=== PATIENT | male | born 1950 | race Caucasian/White ===

== ENCOUNTER 2020-12-03 11:31 | Inpatient (IN) | payer OTHER, MEDICARE ==
[2020-12-03] MEDS: Sodium Chloride 0.9% 1,000 ML IV SCH ×2 (12:20→21:01)
[2020-12-03 12:48] LABS: Troponin I 0.692 ng/mL (< 0.028)
[2020-12-03 15:20] LABS: Troponin I 0.759 ng/mL (< 0.028)
[2020-12-03] MEDS ORDERED: Senokot S 8.6-50 MG TAB PO PRN (15:20)
[2020-12-03] MEDS ORDERED: Ondansetron ODT 4 MG TAB PO PRN (15:20)
[2020-12-03] MEDS ORDERED: Nitroglycerin 0.4 MG TAB (25 Tab Bottle) SL PRN (15:20)
[2020-12-03] MEDS: Carvedilol 3.125 MG TAB PO SCH (18:56)
[2020-12-03] MEDS: Famotidine 20 MG TAB PO SCH (20:23)
[2020-12-03] MEDS: Enoxaparin Sodium 60 MG/0.6 ML SYRINGE SC SCH (20:23)
[2020-12-03] MEDS: Atorvastatin Calcium 40 MG TAB PO SCH (20:23)
[2020-12-03] MEDS ORDERED: Zolpidem Tartrate 5 MG TAB PO SCH (21:00)
[2020-12-03 22:03] LABS: Critical Call Chem Troponin I RESULT DECREASING
[2020-12-03 22:09] LABS: SARS-CoV-2 PCR by NAA Not Detected (NotDetected)
[2020-12-03] MEDS ORDERED: Sodium Chloride 0.9% 1,000 ML IV SCH (22:38)
[2020-12-03 23:52] LABS: Bilirubin Neg (Negative); Blood, Urine 10 (Negative); Clarity Slightly Cloudy (Clear); Glucose, Urine (Dipstick) 100 mg/dL (Negative); Ketone, Urine 15 mg/dL (Negative); Leukocyte Negative (Negative); Nitrite Negative (Negative); Protein, Urine (Dipstick) 15 mg/dl (Neg-Trace); Specific Gravity, Urine 1.015 (1.002-1.036); Urobilinogen Normal mg/dL (Less than 2)
[2020-12-04 00:05] LABS: RBC/HPF 0-3 HPF (0-3)
[2020-12-04 00:06] LABS: Bacteria/HPF 1+ HPF (None Seen); Mucous/LPF 4+ LPF (<2+); Squamous Epithelial 0-3 HPF (0-3); White Blood Cell Cast 0-3 LPF (None Seen)
[2020-12-04] MEDS ORDERED: Bisacodyl 10 MG SUPP PR PRN (03:30)
[2020-12-04] MEDS ORDERED: Milk Of Magnesia 30 ML UDCUP PO SCH (03:30)
[2020-12-04 05:03] LABS: #Monocytes 0.3 10x3/uL (0.0-1.1); #Neutrophils 3.1 10x3/uL (1.5-8.4); %Basophils 0.5 % (0.0-2.0); %Eosinophils 0.2 % (0.0-6.0); %Monocytes 7.7 % (0.0-10.0); %Neutrophils 69.9 % (40.0-75.0); Hemoglobin 12.7 g/dL (13.5-17.5); Mean Corpuscular HGB CONC 36.9 g/dL (32.0-36.0); Mean Corpuscular Hemoglobin 32.3 pg (27.0-33.0); Mean Corpuscular Volume 87.5 fl (81.2-95.1); Mean Platelet Volume 9.8 fl (7.4-10.4); Platelet Count 133 10x3/uL (150-450); RBC Distribution Width 11.7 % (11.5-14.5); Red Blood Cell (RBC) Count 3.93 10x6/uL (4.32-5.72); White Blood Cell (WBC) Count 4.4 10x3/uL (3.5-10.5)
[2020-12-04 05:20] LABS: Phosphorus 2.4 mg/dL (2.3-4.7)
[2020-12-04 05:21] LABS: Anion Gap 14 mmol/L (10-20); BUN (Urea Nitrogen) 7 mg/dL (8.4-25.7); Calc. Creatinine Clearance 74 mL/min (70-130); Calcium 8.3 mg/dL (7.8-10.44); Carbon Dioxide 26 mmol/L (23-31); Chloride 84 mmol/L (98-107); Cholesterol 148 mg/dl (< 200 Desired); Glucose 93 mg/dL (83-110); HDL Cholesterol 73 mg/dL (>60 Neg Risk); LDL Cholesterol, Calculated 61 mg/dL; Potassium 3.4 mmol/L (3.5-5.1); Sodium 121 mmol/L (136-145); Triglycerides 68 mg/dL (Less than 150)
[2020-12-04 05:25] LABS: Troponin I 0.398 ng/mL (< 0.028)
[2020-12-04] MEDS ORDERED: Potassium Chloride 20 MEQ TAB PO SCH (07:30)
[2020-12-04] MEDS ORDERED: Magnesium 2 GM/50 ML 2 GM in Premix Bag 1 BAG IVPB SCH (08:00)
[2020-12-04] MEDS: Clopidogrel Bisulfate 75 MG TAB PO SCH (08:04)
[2020-12-04] MEDS: Famotidine 20 MG TAB PO SCH ×3 (08:04→20:12)
[2020-12-04] MEDS: Thiamine 100 MG TAB PO SCH (08:04)
[2020-12-04] MEDS: Enoxaparin Sodium 60 MG/0.6 ML SYRINGE SC SCH ×2 (08:05→20:02)
[2020-12-04] MEDS: Folic Acid 1 MG TAB PO SCH (08:05)
[2020-12-04] MEDS: Aspirin 81 mg Enteric Coated Tablet PO SCH (08:05)
[2020-12-04] MEDS: Carvedilol 3.125 MG TAB PO SCH ×2 (09:12→17:50)
[2020-12-04] MEDS: Sodium Chloride 0.9% 1,000 ML IV SCH ×2 (09:27→20:02)
[2020-12-04 10:34] LABS: Troponin I 0.307 ng/mL (< 0.028)
[2020-12-04 11:26] LABS: Hemoglobin A1c 4.7 % (4.0-6.0)
[2020-12-04 11:32] VITALS: BMI 18.5
[2020-12-04 13:52] LABS: Troponin I 0.264 ng/mL (< 0.028)
[2020-12-04] MEDS ORDERED: Calcium Carbonate 500 MG ChewTAB PO PRN (16:08)
[2020-12-04 19:53] LABS: Troponin I 0.229 ng/mL (< 0.028)
[2020-12-04] MEDS: Atorvastatin Calcium 40 MG TAB PO SCH ×2 (20:02→20:13)
[2020-12-04] MEDS ORDERED: Zolpidem Tartrate 5 MG TAB PO SCH (20:30)
[2020-12-05 05:42] LABS: Anion Gap 12 mmol/L (10-20); BUN (Urea Nitrogen) Less than 4 mg/dL (8.4-25.7); Calc. Creatinine Clearance 86 mL/min (70-130); Carbon Dioxide 27 mmol/L (23-31); Chloride 86 mmol/L (98-107); Glucose 83 mg/dL (83-110); Potassium 3.7 mmol/L (3.5-5.1); Sodium 121 mmol/L (136-145)
[2020-12-05 05:50] LABS: #Monocytes 0.4 10x3/uL (0.0-1.1); #Neutrophils 2.2 10x3/uL (1.5-8.4); %Basophils 0.6 % (0.0-2.0); %Eosinophils 0.3 % (0.0-6.0); %Lymphocytes 20.4 % (18.0-47.0); %Monocytes 11.1 % (0.0-10.0); %Neutrophils 67.3 % (40.0-75.0); Hemoglobin 10.6 g/dL (13.5-17.5); Mean Corpuscular HGB CONC 35.9 g/dL (32.0-36.0); Mean Corpuscular Hemoglobin 31.8 pg (27.0-33.0); Mean Corpuscular Volume 88.6 fl (81.2-95.1); Platelet Count 127 10x3/uL (150-450); RBC Distribution Width 11.7 % (11.5-14.5); Red Blood Cell (RBC) Count 3.33 10x6/uL (4.32-5.72); White Blood Cell (WBC) Count 3.3 10x3/uL (3.5-10.5)
[2020-12-05] MEDS: Carvedilol 3.125 MG TAB PO SCH ×2 (08:42→17:05)
[2020-12-05] MEDS: Clopidogrel Bisulfate 75 MG TAB PO SCH (08:42)
[2020-12-05] MEDS: Enoxaparin Sodium 60 MG/0.6 ML SYRINGE SC SCH ×2 (08:42→20:18)
[2020-12-05] MEDS: Aspirin 81 mg Enteric Coated Tablet PO SCH (08:42)
[2020-12-05] MEDS: Thiamine 100 MG TAB PO SCH (08:43)
[2020-12-05] MEDS: Famotidine 20 MG TAB PO SCH ×2 (08:43→20:18)
[2020-12-05] MEDS: Folic Acid 1 MG TAB PO SCH (08:43)
[2020-12-05] MEDS ORDERED: Sodium Chloride 1 GM TAB PO SCH (09:00)
[2020-12-05] MEDS: Sodium Chloride 0.9% 1,000 ML IV SCH ×2 (12:34→22:51)
[2020-12-05] MEDS: Atorvastatin Calcium 40 MG TAB PO SCH (20:18)
[2020-12-05] MEDS ORDERED: Zolpidem Tartrate 5 MG TAB PO SCH (20:30)
[2020-12-05] MEDS: Lorazepam 2 MG/ML VIAL SLOW IVP PRN (23:56)
[2020-12-06 05:16] LABS: #Monocytes 0.3 10x3/uL (0.0-1.1); #Neutrophils 1.4 10x3/uL (1.5-8.4); %Basophils 1.1 % (0.0-2.0); %Eosinophils 0.8 % (0.0-6.0); %Lymphocytes 32.4 % (18.0-47.0); %Monocytes 12.6 % (0.0-10.0); %Neutrophils 52.7 % (40.0-75.0); Mean Corpuscular HGB CONC 36.4 g/dL (32.0-36.0); Mean Corpuscular Hemoglobin 32.1 pg (27.0-33.0); Mean Corpuscular Volume 88.1 fl (81.2-95.1); Mean Platelet Volume 9.9 fl (7.4-10.4); Platelet Count 124 10x3/uL (150-450); RBC Distribution Width 11.9 % (11.5-14.5); Red Blood Cell (RBC) Count 3.12 10x6/uL (4.32-5.72); White Blood Cell (WBC) Count 2.6 10x3/uL (3.5-10.5)
[2020-12-06 05:37] LABS: Anion Gap 11 mmol/L (10-20); BUN (Urea Nitrogen) Less than 4 mg/dL (8.4-25.7); Calc. Creatinine Clearance 90 mL/min (70-130); Calcium 7.9 mg/dL (7.8-10.44); Carbon Dioxide 25 mmol/L (23-31); Chloride 87 mmol/L (98-107); Glucose 82 mg/dL (83-110); Potassium 3.3 mmol/L (3.5-5.1); Sodium 120 mmol/L (136-145)
[2020-12-06] MEDS: Sodium Chloride 1 GM TAB PO SCH ×2 (08:58→20:55)
[2020-12-06] MEDS: Folic Acid 1 MG TAB PO SCH (08:59)
[2020-12-06] MEDS: Famotidine 20 MG TAB PO SCH ×2 (08:59→20:47)
[2020-12-06] MEDS: Thiamine 100 MG TAB PO SCH (08:59)
[2020-12-06] MEDS: Aspirin 81 mg Enteric Coated Tablet PO SCH (08:59)
[2020-12-06] MEDS: Carvedilol 3.125 MG TAB PO SCH ×2 (08:59→17:08)
[2020-12-06] MEDS: Enoxaparin Sodium 60 MG/0.6 ML SYRINGE SC SCH ×2 (09:00→20:47)
[2020-12-06] MEDS: Clopidogrel Bisulfate 75 MG TAB PO SCH (09:00)
[2020-12-06] MEDS ORDERED: Spironolactone 25 MG TAB PO SCH (11:45)
[2020-12-06] MEDS: Acetaminophen 325 MG TAB PO PRN (15:25)
[2020-12-06] MEDS: Atorvastatin Calcium 40 MG TAB PO SCH (20:47)
[2020-12-06] MEDS: Lorazepam 2 MG/ML VIAL SLOW IVP PRN (20:52)
[2020-12-07 04:46] LABS: Anion Gap 11 mmol/L (10-20); BUN (Urea Nitrogen) Less than 4 mg/dL (8.4-25.7); Calc. Creatinine Clearance 94 mL/min (70-130); Calcium 7.7 mg/dL (7.8-10.44); Carbon Dioxide 26 mmol/L (23-31); Chloride 88 mmol/L (98-107); Glucose 79 mg/dL (83-110); Sodium 122 mmol/L (136-145)
[2020-12-07 04:48] LABS: Hemoglobin 10.1 g/dL (13.5-17.5); Mean Corpuscular HGB CONC 36.2 g/dL (32.0-36.0); Mean Corpuscular Hemoglobin 32.2 pg (27.0-33.0); Mean Corpuscular Volume 88.9 fl (81.2-95.1); Mean Platelet Volume 9.8 fl (7.4-10.4); Platelet Count 132 10x3/uL (150-450); RBC Distribution Width 11.6 % (11.5-14.5); Red Blood Cell (RBC) Count 3.14 10x6/uL (4.32-5.72)
[2020-12-07 05:41] LABS: MDiff Complete? YES
[2020-12-07 05:46] LABS: Band 3 % (5-11); Eosinophils 1 % (0-10); Lymphocytes 40 % (21-51); Monocytes 8 % (0-10); Neutrophil 44 % (42-75); Poikilocytosis SLIGHT = 6-15 cells (100X) (0-5/hpf)
[2020-12-07 05:47] LABS: Platelet Morphology Comment Appears Adequate
[2020-12-07] MEDS ORDERED: Potassium Chloride 20 MEQ TAB PO SCH ×2 (07:30→17:15)
[2020-12-07] MEDS ORDERED: Spironolactone 25 MG TAB PO SCH (08:00)
[2020-12-07] MEDS: Lisinopril 2.5 MG TAB PO SCH (09:20)
[2020-12-07] MEDS: Aspirin 81 mg Enteric Coated Tablet PO SCH (09:20)
[2020-12-07] MEDS: Folic Acid 1 MG TAB PO SCH (09:20)
[2020-12-07] MEDS: Sodium Chloride 1 GM TAB PO SCH ×2 (09:21→21:05)
[2020-12-07] MEDS: Enoxaparin Sodium 40 MG/0.4 ML SYRINGE SC SCH (09:21)
[2020-12-07] MEDS: Thiamine 100 MG TAB PO SCH (09:22)
[2020-12-07] MEDS: Famotidine 20 MG TAB PO SCH ×2 (09:22→21:05)
[2020-12-07] MEDS: Spironolactone 25 MG TAB PO SCH (09:22)
[2020-12-07] MEDS: Carvedilol 3.125 MG TAB PO SCH ×2 (09:22→17:12)
[2020-12-07] MEDS: Acetaminophen 325 MG TAB PO PRN ×2 (10:38→17:20)
[2020-12-07 13:32] LABS: Anion Gap 12 mmol/L (10-20); BUN (Urea Nitrogen) Less than 4 mg/dL (8.4-25.7); Calc. Creatinine Clearance 85 mL/min (70-130); Calcium 7.8 mg/dL (7.8-10.44); Carbon Dioxide 26 mmol/L (23-31); Chloride 87 mmol/L (98-107); Glucose 115 mg/dL (83-110); Potassium 3.3 mmol/L (3.5-5.1); Sodium 122 mmol/L (136-145)
[2020-12-07] MEDS ORDERED: Magnesium 2 GM/50 ML 2 GM in Premix Bag 1 BAG IVPB SCH (17:30)
[2020-12-07] MEDS: Lorazepam 2 MG/ML VIAL SLOW IVP PRN (21:05)
[2020-12-07] MEDS: Atorvastatin Calcium 40 MG TAB PO SCH (21:06)
[2020-12-07 22:33] LABS: Potassium 3.3 mmol/L (3.5-5.1)
[2020-12-08 05:29] LABS: ALT (SGPT) 23 U/L (8-55); AST (SGOT) 52 U/L (5-34); Albumin 3.1 g/dL (3.4-4.8); Alkaline Phosphatase 39 U/L (40-110); Anion Gap 13 mmol/L (10-20); BUN (Urea Nitrogen) 5 mg/dL (8.4-25.7); Bilirubin, Total 0.6 mg/dL (0.2-1.2); Calc. Creatinine Clearance 86 mL/min (70-130); Carbon Dioxide 24 mmol/L (23-31); Chloride 89 mmol/L (98-107); Globulin 2.8 g/dL (2.4-3.5); Glucose 79 mg/dL (83-110); Magnesium 1.4 mg/dL (1.6-2.6); Potassium 3.6 mmol/L (3.5-5.1); Protein, Total 5.9 g/dL (5.8-8.1); Sodium 122 mmol/L (136-145)
[2020-12-08 05:35] LABS: Hemoglobin 10.3 g/dL (13.5-17.5); Mean Corpuscular HGB CONC 36.1 g/dL (32.0-36.0); Mean Corpuscular Hemoglobin 32.3 pg (27.0-33.0); Mean Corpuscular Volume 89.3 fl (81.2-95.1); Mean Platelet Volume 9.4 fl (7.4-10.4); Platelet Count 130 10x3/uL (150-450); RBC Distribution Width 11.8 % (11.5-14.5); Red Blood Cell (RBC) Count 3.19 10x6/uL (4.32-5.72); White Blood Cell (WBC) Count 1.6 10x3/uL (3.5-10.5)
[2020-12-08 07:00] LABS: MDiff Complete? YES
[2020-12-08 07:04] LABS: Band 1 % (5-11); Eosinophils 3 % (0-10); Lymphocytes 37 % (21-51); Monocytes 16 % (0-10); Neutrophil 39 % (42-75); Reactive Lymphocytes 4 % (0-10)
[2020-12-08 07:08] LABS: Platelet Morphology Comment Appears Decreased
[2020-12-08 07:09] LABS: Large Platelets SLIGHT
[2020-12-08 07:21] LABS: Reflex for Review?? YES
[2020-12-08] MEDS: Lisinopril 2.5 MG TAB PO SCH (08:10)
[2020-12-08] MEDS: Enoxaparin Sodium 40 MG/0.4 ML SYRINGE SC SCH (08:10)
[2020-12-08] MEDS: Spironolactone 25 MG TAB PO SCH (08:11)
[2020-12-08] MEDS: Aspirin 81 mg Enteric Coated Tablet PO SCH (08:11)
[2020-12-08] MEDS: Carvedilol 3.125 MG TAB PO SCH ×2 (08:12→17:07)
[2020-12-08] MEDS: Folic Acid 1 MG TAB PO SCH (08:12)
[2020-12-08] MEDS: Thiamine 100 MG TAB PO SCH (08:12)
[2020-12-08] MEDS: Famotidine 20 MG TAB PO SCH ×2 (08:12→20:08)
[2020-12-08] MEDS ORDERED: Magnesium Sulfate 4 GM in Sodium Chloride 0.9% 250 ML 250 ML IVPB SCH (09:15)
[2020-12-08] MEDS ORDERED: Potassium Chloride 20 MEQ TAB PO SCH ×2 (09:15→18:45)
[2020-12-08] MEDS ORDERED: Magnesium 2 GM/50 ML 2 GM in Premix Bag 1 BAG IVPB SCH (09:30)
[2020-12-08] MEDS ORDERED: Sodium Chloride 1 GM TAB PO SCH (11:00)
[2020-12-08] MEDS: Acetaminophen 325 MG TAB PO PRN (12:28)
[2020-12-08 17:09] LABS: Anion Gap 10 mmol/L (10-20); BUN (Urea Nitrogen) 7 mg/dL (8.4-25.7); Calc. Creatinine Clearance 83 mL/min (70-130); Calcium 7.8 mg/dL (7.8-10.44); Carbon Dioxide 27 mmol/L (23-31); Chloride 88 mmol/L (98-107); Glucose 144 mg/dL (83-110); Magnesium 1.6 mg/dL (1.6-2.6); Potassium 3.3 mmol/L (3.5-5.1); Sodium 122 mmol/L (136-145)
[2020-12-08 17:37] LABS: Phosphorus 1.7 mg/dL (2.3-4.7)
[2020-12-08] MEDS: Atorvastatin Calcium 40 MG TAB PO SCH (20:08)
[2020-12-08] MEDS: Magnesium Oxide 400 MG TAB PO SCH (20:08)
[2020-12-08] MEDS: Magnesium 2 GM/50 ML 2 GM in Premix Bag 1 BAG IVPB SCH ×2 (20:08→20:09)
[2020-12-08] MEDS: Sodium Chloride 1 GM TAB PO SCH (20:11)
[2020-12-08] MEDS ORDERED: PHOS-NAK 1 PKT PACK PO SCH ×2 (20:30→20:45)
[2020-12-08] MEDS ORDERED: Potassium Phosphate 15 MMOL in Sodium Chloride 0.9% 250 ML 250 ML IVPB SCH (21:00)
[2020-12-08 21:33] LABS: Anion Gap 12 mmol/L (10-20); BUN (Urea Nitrogen) 8 mg/dL (8.4-25.7); Calc. Creatinine Clearance 87 mL/min (70-130); Calcium 8.1 mg/dL (7.8-10.44); Carbon Dioxide 23 mmol/L (23-31); Chloride 90 mmol/L (98-107); Glucose 108 mg/dL (83-110); Potassium 3.4 mmol/L (3.5-5.1); Sodium 122 mmol/L (136-145)
[2020-12-09 05:43] LABS: Hemoglobin 10.7 g/dL (13.5-17.5); Mean Corpuscular HGB CONC 35.8 g/dL (32.0-36.0); Mean Corpuscular Hemoglobin 32.1 pg (27.0-33.0); Mean Corpuscular Volume 89.8 fl (81.2-95.1); Mean Platelet Volume 9.3 fl (7.4-10.4); Platelet Count 160 10x3/uL (150-450); Red Blood Cell (RBC) Count 3.33 10x6/uL (4.32-5.72); White Blood Cell (WBC) Count 2.1 10x3/uL (3.5-10.5)
[2020-12-09 05:55] LABS: Anion Gap 14 mmol/L (10-20); Globulin 2.9 g/dL (2.4-3.5)
[2020-12-09 05:58] LABS: ALT (SGPT) 23 U/L (8-55); AST (SGOT) 47 U/L (5-34); Albumin 3.4 g/dL (3.4-4.8); Alkaline Phosphatase 44 U/L (40-110); BUN (Urea Nitrogen) 6 mg/dL (8.4-25.7); Bilirubin, Total 0.6 mg/dL (0.2-1.2); Calc. Creatinine Clearance 87 mL/min (70-130); Carbon Dioxide 25 mmol/L (23-31); Chloride 91 mmol/L (98-107); Glucose 86 mg/dL (83-110); Magnesium 2.4 mg/dL (1.6-2.6); Phosphorus 3.4 mg/dL (2.3-4.7); Potassium 3.6 mmol/L (3.5-5.1); Protein, Total 6.3 g/dL (5.8-8.1); Sodium 126 mmol/L (136-145)
[2020-12-09 06:24] LABS: MDiff Complete? YES
[2020-12-09 06:28] LABS: Eosinophils 1 % (0-10); Lymphocytes 40 % (21-51); Monocytes 14 % (0-10); Neutrophil 44 % (42-75)
[2020-12-09 06:29] LABS: Platelet Morphology Comment Appears Adequate
[2020-12-09 06:30] LABS: RBC Morphology Normal
[2020-12-09] MEDS: Thiamine 100 MG TAB PO SCH (10:11)
[2020-12-09] MEDS: Famotidine 20 MG TAB PO SCH ×2 (10:11→21:40)
[2020-12-09] MEDS: Carvedilol 3.125 MG TAB PO SCH ×2 (10:12→18:29)
[2020-12-09] MEDS: Magnesium Oxide 400 MG TAB PO SCH ×2 (10:12→21:40)
[2020-12-09] MEDS: Lisinopril 2.5 MG TAB PO SCH (10:12)
[2020-12-09] MEDS: Aspirin 81 mg Enteric Coated Tablet PO SCH (10:12)
[2020-12-09] MEDS: Folic Acid 1 MG TAB PO SCH (10:12)
[2020-12-09] MEDS: Enoxaparin Sodium 40 MG/0.4 ML SYRINGE SC SCH (10:13)
[2020-12-09] MEDS: Sodium Chloride 1 GM TAB PO SCH (10:17)
[2020-12-09] MEDS: Acetaminophen 325 MG TAB PO PRN (14:32)
[2020-12-09 21:32] LABS: Anion Gap 11 mmol/L (10-20); BUN (Urea Nitrogen) 8 mg/dL (8.4-25.7); Calc. Creatinine Clearance 80 mL/min (70-130); Calcium 8.2 mg/dL (7.8-10.44); Carbon Dioxide 25 mmol/L (23-31); Chloride 94 mmol/L (98-107); Glucose 106 mg/dL (83-110); Potassium 3.6 mmol/L (3.5-5.1); Sodium 126 mmol/L (136-145)
[2020-12-09] MEDS: Spironolactone 25 MG TAB PO SCH (21:40)
[2020-12-09] MEDS: Atorvastatin Calcium 40 MG TAB PO SCH (21:40)
[2020-12-10] MEDS ORDERED: Melatonin 3 MG TAB PO SCH (00:15)
[2020-12-10] MEDS: Acetaminophen 325 MG TAB PO PRN ×3 (00:33→19:29)
[2020-12-10 05:25] LABS: Hemoglobin 9.6 g/dL (13.5-17.5); Mean Corpuscular HGB CONC 35.6 g/dL (32.0-36.0); Mean Corpuscular Hemoglobin 31.9 pg (27.0-33.0); Mean Corpuscular Volume 89.7 fl (81.2-95.1); Mean Platelet Volume 9.1 fl (7.4-10.4); Platelet Count 163 10x3/uL (150-450); RBC Distribution Width 12.2 % (11.5-14.5); Red Blood Cell (RBC) Count 3.01 10x6/uL (4.32-5.72); White Blood Cell (WBC) Count 2.5 10x3/uL (3.5-10.5)
[2020-12-10 05:44] LABS: Anion Gap 10 mmol/L (10-20)
[2020-12-10 05:53] LABS: MDiff Complete? YES
[2020-12-10 05:59] LABS: Band 3 % (5-11); Eosinophils 2 % (0-10); Lymphocytes 36 % (21-51); Monocytes 19 % (0-10); Neutrophil 40 % (42-75)
[2020-12-10 06:01] LABS: Platelet Morphology Comment Appears Adequate; RBC Morphology Normal
[2020-12-10 06:19] LABS: BUN (Urea Nitrogen) 8 mg/dL (8.4-25.7); Calc. Creatinine Clearance 87 mL/min (70-130); Calcium 8.1 mg/dL (7.8-10.44); Carbon Dioxide 25 mmol/L (23-31); Chloride 95 mmol/L (98-107); Glucose 82 mg/dL (83-110); Magnesium 1.5 mg/dL (1.6-2.6); Phosphorus 2.6 mg/dL (2.3-4.7); Potassium 3.4 mmol/L (3.5-5.1); Sodium 127 mmol/L (136-145)
[2020-12-10] MEDS ORDERED: Magnesium Sulfate 3 GM in Sodium Chloride 0.9% 100 ML IVPB SCH (08:15)
[2020-12-10] MEDS ORDERED: Potassium Chloride 20 MEQ TAB PO SCH (08:15)
[2020-12-10] MEDS: Famotidine 20 MG TAB PO SCH ×2 (09:38→21:35)
[2020-12-10] MEDS: Carvedilol 3.125 MG TAB PO SCH ×2 (09:38→18:10)
[2020-12-10] MEDS: Enoxaparin Sodium 40 MG/0.4 ML SYRINGE SC SCH (09:38)
[2020-12-10] MEDS: Aspirin 81 mg Enteric Coated Tablet PO SCH (09:38)
[2020-12-10] MEDS: Lisinopril 2.5 MG TAB PO SCH (09:39)
[2020-12-10] MEDS: Thiamine 100 MG TAB PO SCH (09:39)
[2020-12-10] MEDS: Spironolactone 25 MG TAB PO SCH ×2 (09:39→21:35)
[2020-12-10] MEDS: Magnesium Oxide 400 MG TAB PO SCH ×2 (09:39→21:34)
[2020-12-10] MEDS: Folic Acid 1 MG TAB PO SCH (09:40)
[2020-12-10] MEDS ORDERED: Sodium Chloride 1 GM TAB PO SCH (12:00)
[2020-12-10] MEDS: Sodium Chloride 1 GM TAB PO SCH (12:48)
[2020-12-10] MEDS: Atorvastatin Calcium 40 MG TAB PO SCH (21:35)
[2020-12-10] MEDS: Melatonin 3 MG TAB PO SCH (21:35)
[2020-12-11 05:48] LABS: ALT (SGPT) 19 U/L (8-55); AST (SGOT) 36 U/L (5-34); Albumin 3.2 g/dL (3.4-4.8); Alkaline Phosphatase 35 U/L (40-110); Anion Gap 11 mmol/L (10-20); BUN (Urea Nitrogen) 12 mg/dL (8.4-25.7); Bilirubin, Total 0.8 mg/dL (0.2-1.2); Calc. Creatinine Clearance 81 mL/min (70-130); Calcium 8.4 mg/dL (7.8-10.44); Carbon Dioxide 25 mmol/L (23-31); Chloride 94 mmol/L (98-107); Globulin 2.8 g/dL (2.4-3.5); Glucose 87 mg/dL (83-110); Magnesium 1.6 mg/dL (1.6-2.6); Phosphorus 2.6 mg/dL (2.3-4.7); Potassium 4.7 mmol/L (3.5-5.1); Sodium 125 mmol/L (136-145)
[2020-12-11 06:04] LABS: Hemoglobin 9.2 g/dL (13.5-17.5); Mean Corpuscular HGB CONC 35.8 g/dL (32.0-36.0); Mean Corpuscular Hemoglobin 32.6 pg (27.0-33.0); Mean Corpuscular Volume 91.1 fl (81.2-95.1); Mean Platelet Volume 9.1 fl (7.4-10.4); Platelet Count 161 10x3/uL (150-450); RBC Distribution Width 12.6 % (11.5-14.5); Red Blood Cell (RBC) Count 2.82 10x6/uL (4.32-5.72); White Blood Cell (WBC) Count 8.7 10x3/uL (3.5-10.5)
[2020-12-11] MEDS: Acetaminophen 325 MG TAB PO PRN ×2 (06:20→10:56)
[2020-12-11 07:04] LABS: Band 23 % (5-11); Lymphocytes 3 % (21-51); Monocytes 2 % (0-10); Neutrophil 72 % (42-75)
[2020-12-11 07:06] LABS: Anisocytosis SLIGHT = 6-15 cells (100X) (0-5/hpf); Microcytosis SLIGHT = 6-15 cells (100X) (0-5/hpf); Platelet Clumps SLIGHT; Platelet Morphology Comment Appears Adequate
[2020-12-11 07:07] LABS: MDiff Complete? YES; Manual Diff?? YES; Toxic Granulation SLIGHT
[2020-12-11] MEDS: Magnesium Oxide 400 MG TAB PO SCH ×2 (09:33→22:59)
[2020-12-11] MEDS: Carvedilol 3.125 MG TAB PO SCH ×2 (09:34→17:21)
[2020-12-11] MEDS: Potassium Chloride 20 MEQ TAB PO SCH (09:34)
[2020-12-11] MEDS: Sodium Chloride 1 GM TAB PO SCH (09:35)
[2020-12-11] MEDS: Spironolactone 25 MG TAB PO SCH (09:35)
[2020-12-11] MEDS: Aspirin 81 mg Enteric Coated Tablet PO SCH (09:35)
[2020-12-11] MEDS: Famotidine 20 MG TAB PO SCH ×2 (09:36→22:59)
[2020-12-11] MEDS: Lisinopril 2.5 MG TAB PO SCH (09:36)
[2020-12-11] MEDS: Thiamine 100 MG TAB PO SCH (09:37)
[2020-12-11] MEDS: Folic Acid 1 MG TAB PO SCH (09:38)
[2020-12-11] MEDS: Enoxaparin Sodium 40 MG/0.4 ML SYRINGE SC SCH (09:38)
[2020-12-11 18:11] LABS: Anion Gap 7 mmol/L (10-20); BUN (Urea Nitrogen) 16 mg/dL (8.4-25.7); Calc. Creatinine Clearance 76 mL/min (70-130); Calcium 8.3 mg/dL (7.8-10.44); Carbon Dioxide 26 mmol/L (23-31); Chloride 96 mmol/L (98-107); Glucose 116 mg/dL (83-110)
[2020-12-11 18:20] LABS: Potassium 4.3 mmol/L (3.5-5.1); Sodium 125 mmol/L (136-145)
[2020-12-11] MEDS: Atorvastatin Calcium 40 MG TAB PO SCH (22:59)
[2020-12-11] MEDS: Melatonin 3 MG TAB PO SCH (22:59)
[2020-12-12 05:21] LABS: #Monocytes 0.4 10x3/uL (0.0-1.1); #Neutrophils 6.5 10x3/uL (1.5-8.4); %Basophils 0.4 % (0.0-2.0); %Eosinophils 0.1 % (0.0-6.0); %Lymphocytes 8.8 % (18.0-47.0); %Monocytes 4.7 % (0.0-10.0); %Neutrophils 85.5 % (40.0-75.0); Hemoglobin 9.5 g/dL (13.5-17.5); Mean Corpuscular HGB CONC 35.2 g/dL (32.0-36.0); Mean Corpuscular Hemoglobin 32.5 pg (27.0-33.0); Mean Corpuscular Volume 92.5 fl (81.2-95.1); Mean Platelet Volume 9.1 fl (7.4-10.4); Platelet Count 188 10x3/uL (150-450); RBC Distribution Width 12.8 % (11.5-14.5); Red Blood Cell (RBC) Count 2.92 10x6/uL (4.32-5.72); White Blood Cell (WBC) Count 7.7 10x3/uL (3.5-10.5)
[2020-12-12 05:25] LABS: Anion Gap 9 mmol/L (10-20); BUN (Urea Nitrogen) 15 mg/dL (8.4-25.7); Calc. Creatinine Clearance 80 mL/min (70-130); Calcium 8.4 mg/dL (7.8-10.44); Carbon Dioxide 24 mmol/L (23-31); Chloride 94 mmol/L (98-107); Glucose 86 mg/dL (83-110); Magnesium 1.3 mg/dL (1.6-2.6); Potassium 4.5 mmol/L (3.5-5.1); Sodium 122 mmol/L (136-145)
[2020-12-12] MEDS: Acetaminophen 325 MG TAB PO PRN ×5 (06:27→23:06)
[2020-12-12] MEDS ORDERED: Magnesium Sulfate 3 GM in Sodium Chloride 0.9% 100 ML IVPB SCH (08:15)
[2020-12-12] MEDS: Enoxaparin Sodium 40 MG/0.4 ML SYRINGE SC SCH (09:58)
[2020-12-12] MEDS: Magnesium Oxide 400 MG TAB PO SCH ×2 (09:59→21:14)
[2020-12-12] MEDS: Famotidine 20 MG TAB PO SCH ×2 (10:00→21:13)
[2020-12-12] MEDS: Folic Acid 1 MG TAB PO SCH (10:01)
[2020-12-12] MEDS: Carvedilol 3.125 MG TAB PO SCH ×2 (10:01→17:47)
[2020-12-12] MEDS: Aspirin 81 mg Enteric Coated Tablet PO SCH (10:01)
[2020-12-12] MEDS: Thiamine 100 MG TAB PO SCH (10:01)
[2020-12-12] MEDS: Potassium Chloride 20 MEQ TAB PO SCH (10:10)
[2020-12-12] MEDS ORDERED: Tolvaptan 15 MG TAB PO SCH (10:30)
[2020-12-12 16:27] LABS: Sodium 125 mmol/L (136-145)
[2020-12-12] MEDS: Atorvastatin Calcium 40 MG TAB PO SCH (21:12)
[2020-12-12] MEDS: Melatonin 3 MG TAB PO SCH (21:14)
[2020-12-13 07:04] LABS: Anion Gap 14 mmol/L (10-20); BUN (Urea Nitrogen) 15 mg/dL (8.4-25.7); Calc. Creatinine Clearance 74 mL/min (70-130); Calcium 8.7 mg/dL (7.8-10.44); Carbon Dioxide 22 mmol/L (23-31); Chloride 97 mmol/L (98-107); Glucose 115 mg/dL (83-110); Magnesium 1.9 mg/dL (1.6-2.6); Potassium 4.5 mmol/L (3.5-5.1); Sodium 128 mmol/L (136-145)
[2020-12-13 07:16] LABS: Hemoglobin 11.1 g/dL (13.5-17.5); Mean Corpuscular HGB CONC 36.3 g/dL (32.0-36.0); Mean Corpuscular Hemoglobin 32.6 pg (27.0-33.0); Mean Platelet Volume 8.9 fl (7.4-10.4); Platelet Count 150 10x3/uL (150-450); RBC Distribution Width 12.9 % (11.5-14.5); White Blood Cell (WBC) Count 5.3 10x3/uL (3.5-10.5)
[2020-12-13] MEDS ORDERED: Magnesium Oxide 400 MG TAB PO ONE (08:52)
[2020-12-13] MEDS: Magnesium Oxide 400 MG TAB PO SCH ×2 (09:03→20:51)
[2020-12-13] MEDS: Famotidine 20 MG TAB PO SCH ×2 (09:04→20:51)
[2020-12-13] MEDS: Folic Acid 1 MG TAB PO SCH (09:04)
[2020-12-13] MEDS: Enoxaparin Sodium 40 MG/0.4 ML SYRINGE SC SCH (09:04)
[2020-12-13] MEDS: Potassium Chloride 20 MEQ TAB PO SCH (09:04)
[2020-12-13] MEDS: Carvedilol 3.125 MG TAB PO SCH ×2 (09:05→16:53)
[2020-12-13] MEDS: Thiamine 100 MG TAB PO SCH (09:05)
[2020-12-13] MEDS: Aspirin 81 mg Enteric Coated Tablet PO SCH (09:10)
[2020-12-13 09:52] LABS: Band 2 % (5-11); Monocytes 1 % (0-10); Myelocyte 1 % (0-0)
[2020-12-13 09:54] LABS: MDiff Complete? YES; Neutrophil 96 % (42-75)
[2020-12-13 09:55] LABS: Dohle Bodies SLIGHT; Platelet Clumps SLIGHT; Toxic Granulation SLIGHT; Vacuoles SLIGHT
[2020-12-13] MEDS: Acetaminophen 325 MG TAB PO PRN ×2 (14:09→20:50)
[2020-12-13 15:18] LABS: Anion Gap 11 mmol/L (10-20); BUN (Urea Nitrogen) 18 mg/dL (8.4-25.7); Calc. Creatinine Clearance 68 mL/min (70-130); Calcium 8.4 mg/dL (7.8-10.44); Carbon Dioxide 22 mmol/L (23-31); Chloride 96 mmol/L (98-107); Glucose 200 mg/dL (83-110); Potassium 4.2 mmol/L (3.5-5.1); Sodium 125 mmol/L (136-145)
[2020-12-13] MEDS: Melatonin 3 MG TAB PO SCH (20:50)
[2020-12-13] MEDS: Atorvastatin Calcium 40 MG TAB PO SCH (20:50)
[2020-12-14] MEDS: Acetaminophen 325 MG TAB PO PRN ×3 (06:39→17:32)
[2020-12-14 08:28] LABS: Anion Gap 11 mmol/L (10-20); BUN (Urea Nitrogen) 20 mg/dL (8.4-25.7); Calc. Creatinine Clearance 78 mL/min (70-130); Calcium 8.7 mg/dL (7.8-10.44); Carbon Dioxide 24 mmol/L (23-31); Chloride 96 mmol/L (98-107); Glucose 96 mg/dL (83-110); Magnesium 2.1 mg/dL (1.6-2.6); Potassium 4.1 mmol/L (3.5-5.1); Sodium 127 mmol/L (136-145)
[2020-12-14] MEDS: Thiamine 100 MG TAB PO SCH (08:39)
[2020-12-14] MEDS: Enoxaparin Sodium 40 MG/0.4 ML SYRINGE SC SCH (08:39)
[2020-12-14] MEDS: Potassium Chloride 20 MEQ TAB PO SCH (08:39)
[2020-12-14] MEDS: Aspirin 81 mg Enteric Coated Tablet PO SCH (08:39)
[2020-12-14] MEDS: Famotidine 20 MG TAB PO SCH ×2 (08:39→20:52)
[2020-12-14] MEDS: Magnesium Oxide 400 MG TAB PO SCH ×2 (08:39→20:53)
[2020-12-14] MEDS: Folic Acid 1 MG TAB PO SCH (08:40)
[2020-12-14] MEDS: Carvedilol 3.125 MG TAB PO SCH ×2 (08:40→17:32)
[2020-12-14 08:42] LABS: Hemoglobin 9.5 g/dL (13.5-17.5); Mean Corpuscular HGB CONC 35.4 g/dL (32.0-36.0); Mean Corpuscular Hemoglobin 32.5 pg (27.0-33.0); Mean Corpuscular Volume 91.8 fl (81.2-95.1); Mean Platelet Volume 9.4 fl (7.4-10.4); Platelet Count 171 10x3/uL (150-450); RBC Distribution Width 13.2 % (11.5-14.5); Red Blood Cell (RBC) Count 2.92 10x6/uL (4.32-5.72); White Blood Cell (WBC) Count 7.6 10x3/uL (3.5-10.5)
[2020-12-14] MEDS ORDERED: Tolvaptan 15 MG TAB PO SCH ×2 (09:00→12:45)
[2020-12-14 09:50] LABS: Lymphocytes 6 % (21-51); Monocytes 7 % (0-10); Neutrophil 87 % (42-75)
[2020-12-14 09:51] LABS: Burr Cells MODERATE= 6-15 cells (100X) (0-1/hpf); Elliptocytes SLIGHT = 2-5 cells (100X) (0-1/hpf); MDiff Complete? YES; Platelet Morphology Comment Appears Adequate
[2020-12-14] MEDS ORDERED: Zolpidem Tartrate 5 MG TAB PO PRN (13:53)
[2020-12-14 17:54] LABS: Anion Gap 12 mmol/L (10-20); BUN (Urea Nitrogen) 22 mg/dL (8.4-25.7); Calc. Creatinine Clearance 73 mL/min (70-130); Calcium 8.7 mg/dL (7.8-10.44); Carbon Dioxide 24 mmol/L (23-31); Chloride 93 mmol/L (98-107); Glucose 113 mg/dL (83-110); Potassium 4.8 mmol/L (3.5-5.1); Sodium 124 mmol/L (136-145)
[2020-12-14] MEDS: Atorvastatin Calcium 40 MG TAB PO SCH (20:52)
[2020-12-14] MEDS: Melatonin 3 MG TAB PO SCH (20:52)
[2020-12-15 05:37] LABS: Anion Gap 12 mmol/L (10-20); BUN (Urea Nitrogen) 18 mg/dL (8.4-25.7); Calc. Creatinine Clearance 77 mL/min (70-130); Calcium 8.7 mg/dL (7.8-10.44); Carbon Dioxide 25 mmol/L (23-31); Chloride 94 mmol/L (98-107); Glucose 133 mg/dL (83-110); Potassium 4.1 mmol/L (3.5-5.1); Sodium 127 mmol/L (136-145)
[2020-12-15 05:57] LABS: Hemoglobin 10.2 g/dL (13.5-17.5); Mean Corpuscular HGB CONC 35.4 g/dL (32.0-36.0); Mean Corpuscular Hemoglobin 31.9 pg (27.0-33.0); Mean Platelet Volume 9.2 fl (7.4-10.4); Platelet Count 191 10x3/uL (150-450); RBC Distribution Width 13.2 % (11.5-14.5); White Blood Cell (WBC) Count 5.3 10x3/uL (3.5-10.5)
[2020-12-15 07:16] LABS: Band 14 % (5-11); Lymphocytes 2 % (21-51); Reactive Lymphocytes 1 % (0-10)
[2020-12-15 07:17] LABS: Monocytes 5 % (0-10); Neutrophil 78 % (42-75)
[2020-12-15 07:18] LABS: Anisocytosis SLIGHT = 6-15 cells (100X) (0-5/hpf); Microcytosis SLIGHT = 6-15 cells (100X) (0-5/hpf)
[2020-12-15 07:19] LABS: Burr Cells SLIGHT = 2-5 cells (100X) (0-1/hpf); Ovalocytes SLIGHT = 2-5 cells (100X) (0-1/hpf); Platelet Clumps SLIGHT; Platelet Morphology Comment Appears Adequate; Poikilocytosis SLIGHT = 6-15 cells (100X) (0-5/hpf)
[2020-12-15 07:20] LABS: Dohle Bodies MODERATE; Toxic Granulation MODERATE
[2020-12-15 07:21] LABS: MDiff Complete? YES; Manual Diff?? YES
[2020-12-15] MEDS: Acetaminophen 325 MG TAB PO PRN (08:11)
[2020-12-15] MEDS: Famotidine 20 MG TAB PO SCH (08:11)
[2020-12-15] MEDS: Carvedilol 3.125 MG TAB PO SCH (08:12)
[2020-12-15] MEDS: Potassium Chloride 20 MEQ TAB PO SCH (08:12)
[2020-12-15] MEDS: Folic Acid 1 MG TAB PO SCH (08:13)
[2020-12-15] MEDS: Magnesium Oxide 400 MG TAB PO SCH (08:13)
[2020-12-15] MEDS: Enoxaparin Sodium 40 MG/0.4 ML SYRINGE SC SCH (08:13)
[2020-12-15] MEDS: Thiamine 100 MG TAB PO SCH (08:13)
[2020-12-15] MEDS: Aspirin 81 mg Enteric Coated Tablet PO SCH (08:13)
[2020-12-15 11:32] VITALS: BP 114/70; TEMP 98.4
== END 2020-12-15 13:49 | disposition home or self-care (01) | DRG 643 ==
LOC: CSHTELE 11:31 → INTOOBSV 11:31 → OBSVTOIN 12-04 11:39
PROVIDERS: ADMIT Family Medicine; ATTEND Internal Medicine
DX: E22.2 Syndrome of inappropriate secretion of antidiuretic hormone (principal); I21.A1 Myocardial infarction type 2; G93.41 Metabolic encephalopathy; D61.818 Other pancytopenia; E87.6 Hypokalemia; E83.42 Hypomagnesemia; E83.39 Other disorders of phosphorus metabolism; F10.10 Alcohol abuse, uncomplicated; R53.81 Other malaise; I10 Essential (primary) hypertension; F17.220 Nicotine dependence, chewing tobacco, uncomplicated; Z20.822 Contact with and (suspected) exposure to COVID-19
CPT/HCPCS: 36415; 36416; 80048; 80053; 80061; 81003; 81015; 82607; 82746; 83036; 83735; 83930; 83935; 84100; 84443; 84484; 85025; 85060; 87635; 93005; 93010; 93306; 94760; 96372; 96374; G0378; J1650; J2060; J3475; J3490; J7050; U0003; U0005